=== PATIENT | male | born 1975 | race Caucasian/White ===

== ENCOUNTER 2023-10-09 22:39 | Emergency (ER) | payer OTHER ==
[2023-10-09 22:53] VITALS: BP 153/102; PULSE 75; RESP 18; TEMP 97.9; BMI 33.5
[2023-10-09] MEDS ORDERED: SULFAMETHOXAZOLE/TRIMETHOPRIM 800MG/160MG D.S. TABLET PO ONE (22:54)
[2023-10-09] MEDS ORDERED: SULFAMETHOXAZOLE/TRIMETHOPRIM 800MG/160MG D.S. TABLET ONE (23:12)
== END 2023-10-09 23:19 | disposition home or self-care (01) ==
LOC: FER 22:39
DX: S90.32XA Contusion of left foot, initial encounter (principal); S90.02XA Contusion of left ankle, initial encounter; M25.572 Pain in left ankle and joints of left foot; X58.XXXA Exposure to other specified factors, initial encounter; Y93.89 Activity, other specified; Y92.009 Unspecified place in unspecified non-institutional (private) residence as the place of occurrence of the external cause
CPT/HCPCS: 99283-25